=== PATIENT | female | born 1940 | race Caucasian/White ===

== ENCOUNTER 2022-03-08 15:41 | Emergency (ER) | payer MEDICARE | END 2022-03-08 19:21 | disposition home or self-care (01) | LOC: JP.ED 15:41 | DX: R10.11 Right upper quadrant pain (principal); Z88.8 Allergy status to other drugs, medicaments and biological substances; Z79.899 Other long term (current) drug therapy | CPT/HCPCS: 36415; 74019; 74019-26; 80053; 83690; 85025; 86140; 99284 ==